=== PATIENT | female | born 1990 | race Caucasian/White ===

== ENCOUNTER 2016-12-21 13:01 | Emergency (ER) | payer BC, OTHER ==
[2016-12-21 13:22] VITALS: BMI 28.0
--- NOTE | 2016-12-21 13:36 | PDOC ---
History of Present Illness - General History Source: Patient, Old Records Exam Limitations: No Limitations <Bennie Delgado - Last Filed: 12/21/16 13:58> - General History Source: Patient Exam Limitations: No Limitations <Yael Irby - Last Filed: 12/21/16 16:59> - General Chief Complaint: Irregular Heart Beat Stated Complaint: Irregular Heart Beat Time Seen by Provider: 12/21/16 13:19 - History of Present Illness Initial Comments: 12/21/16 13:56 The patient is a 26 year old female with a past medical history of bipolar disorder and multiple sclerosis (diagnosed 12 years ago) who presents to the emergency department for further evaluation of bradycardia today. The patient states that she was at [facility] located at [address] [place] [address] in [place] to take a medication (Gilenya) prescribed by her neurologist, Dr. Juan. The patient states that after she took the medication her heart rate slowed to 46 bpm. The patient notes that this is the first time she has taken the medication and that she was informed bradycardia was a possible side effect. The patient denies any symptoms at this time. She denies lightheadedness , any other new medications, fevers, or syncope. (Bennie Delgado) 12/21/16 13:36 bradycardia after meds at [facility] , asxs. (Yael Irby) Past History <Bennie Delgado - Last Filed: 12/21/16 13:58> - Past Medical History Asthma: No Cancer: No Cardiac Disorders: No Diabetes: No Disorders: Yes (URINARY FREQ HX) HTN: No Psychiatric Problems: Yes (BIPOLAR) Suicide Attempt (Hx): No Seizures: No Thyroid Disease: No - Psycho/Social/Smoking Cessation Hx Anxiety: No Suicidal Ideation: No Smoking Status: No Smoking History: Never smoked Have you smoked in the past 12 months: No Number of Cigarettes Smoked Daily: 3 Information on smoking cessation initiated: No 'Breaking Loose' booklet given: 03/24/13 Hx Alcohol Use: No Drug/Substance Use Hx: No Substance Use Type: None Hx Substance Use Treatment: No <Yael Irby - Last Filed: 12/21/16 16:59> - Past Medical History Allergies/Adverse Reactions: Allergies Allergy/AdvReac Type Severity Reaction Status Date / Time Penicillins Allergy Mild Rash Verified 05/09/16 21:41 CITRUS Allergy Intermediate Swelling Uncoded 05/09/16 21:41 Home Medications: Ambulatory Orders Gabapentin 100 mg PO DAILY 12/21/16 Topiramate [Topamax] 100 mg PO BID 12/21/16 Cardiac Specific PMH - Complaint Specific PMHX Angina: No Pulmonary Embolus: No <Yael Irby - Last Filed: 12/21/16 16:59> Review of Systems - Review of Systems Able to Perform ROS?: Yes <Bennie Delgado - Last Filed: 12/21/16 13:58> <Yael Irby - Last Filed: 12/21/16 16:59> - Review of Systems Comments:: 12/21/16 13:56 CONSTITUTIONAL: Absent: fever, chills, diaphoresis, generalized weakness, malaise, loss of appetite HEENT: Absent: rhinorrhea, nasal congestion, throat pain, throat swelling, difficulty swallowing, mouth swelling, ear pain, eye pain, visual Changes CARDIOVASCULAR: Present: Bradycardia Absent: chest pain, syncope, palpitations, lightheadedness, peripheral edema RESPIRATORY: Absent: cough, shortness of breath, dyspnea with exertion, orthopnea, wheezing, stridor, hemoptysis GASTROINTESTINAL: Absent: abdominal pain, abdominal distension, nausea, vomiting, diarrhea, constipation, melena, hematochezia GENITOURINARY: Absent: dysuria, frequency, urgency, hesitancy, hematuria, flank pain, genital pain MUSCULOSKELETAL: Absent: myalgia, arthralgia, joint swelling SKIN: Absent: rash, itching, pallor HEMATOLOGIC/IMMUNOLOGIC: Absent: easy bleeding, easy bruising, lymphadenopathy, frequent infections ENDOCRINE: Absent: unexplained weight gain, unexplained weight loss, heat intolerance, cold intolerance NEUROLOGIC: Absent: headache, focal weakness or paresthesias, dizziness, unsteady gait, seizure, mental status changes, bladder or bowel incontinence PSYCHIATRIC: Absent: anxiety, depression, suicidal or homicidal ideation, hallucinations. ( Bennie Delgado) *Physical Exam <Bennie Delgado - Last Filed: 12/21/16 13:58> <Yael Irby - Last Filed: 12/21/16 16:59> - Vital Signs Last Vital Signs Temp Pulse Resp BP Pulse Ox 98.2 F 70 18 125/72 100 12/21/16 16:10 12/21/16 16:10 12/21/16 16:10 12/21/16 16:10 12/21/16 16:10 - Physical Exam Comments: 12/21/16 13:57 GENERAL: Well developed, well nourished. Awake and alert. In no acute distress. HEENT: Normocephalic, atraumatic. PERRLA, EOMI. No conjunctival pallor. Sclera are non- icteric. Moist mucous membranes. Oropharynx is clear. NECK: Supple. Full ROM. No JVD. Carotid pulses 2+ and symmetric, without bruits. No thyromegaly. No lymphadenopathy. CARDIOVASCULAR: Regular rate and rhythm. No murmurs, rubs, or gallops. Distal pulses are 2+ and symmetric. PULMONARY: No evidence of respiratory distress. Lungs clear to auscultation bilaterally. No wheezing, rales or rhonchi. ABDOMINAL: Soft. Non-tender. Non-distended. No rebound or guarding. No organomegaly. Normoactive bowel sounds. MUSCULOSKELETAL Normal range of motion at all joints. No bony deformities or tenderness. No CVA tenderness. EXTREMITIES: No cyanosis. No clubbing. No edema. No calf tenderness. 5/5 all extremities SKIN: Warm and dry. Normal capillary refill. No rashes. No jaundice. NEUROLOGICAL: Alert, awake, appropriate. Cranial nerves 2-12 intact. No deficits to light touch and temperature in face, upper extremities and lower extremities. No motor deficits in the in face, upper extremities and lower extremities. Normoreflexic in the upper and lower extremities. Normal speech. Toes are downgoing bilaterally. Gait is normal without ataxia. PSYCHIATRIC: Cooperative. Good eye contact. (Bennie Delgado) Heart Score/ECG Review <Bennie Delgado - Last Filed: 12/21/16 13:58> - ECG Intrepretation Rhythm: Regular Rhythm - [place]: Normal <Yael Irby - Last Filed: 12/21/16 16:59> - ECG Intrepretation Comment:: 12/21/16 16:29 sinus bradycardia 53 bpm. pr 144 (Yael Irby) - [place] Comment: 12/21/16 13:32 rate 54 bpm. sinus bradycardia. pr 138. (Yael Irby) ED Treatment Course - LABORATORY CBC & Chemistry Diagram: 12/21/16 13:38 12/21/16 13:38 <Yael Irby - Last Filed: 12/21/16 16:59> - ADDITIONAL ORDERS Additional order review: Laboratory Results 12/21/16 12/21/16 13:38 13:37 Sodium 139 Potassium 4.2 Chloride 104 Carbon Dioxide 25 D Anion Gap 10 BUN 7 D Creatinine 0.5 L Creat Clearance w eGFR > 60 Random Glucose 76 D Calcium 9.1 Total Bilirubin 1.4 H D AST 14 L ALT 18 D Alkaline Phosphatase 71 D Total Protein 7.0 Albumin 3.8 D TSH 0.81 Urine HCG, Qual Negative 12/21/16 13:38 RBC 4.42 MCV 86.5 MCHC 32.9 RDW 13.8 MPV 9.0 Progress Note <Bennie Delgado - Last Filed: 12/21/16 13:58> <Yael Irby - Last Filed: 12/21/16 16:59> - Progress Note Progress Note: pt with heart rate in the 70's on the monitor. ok for dc home. (Yael Irby) Medical Decision Making <Bennie Delgado - Last Filed: 12/21/16 13:58> <Yael Irby - Last Filed: 12/21/16 16:59> - Medical Decision Making 12/21/16 13:30 Dr. Juan was called. He stated that bradycardia was a normal reaction to taking the medication the first time and that the patient should continue to take the medication and should be monitored and given a nebulizer until bradycardia subsides. (Bennie Delgado) 12/21/16 13:33 26 yo F h/o bipolar, MS ( 10 yrs ) followed by nuerologist dr. Juan. here from clinic after receiving medication, Gilena. pt was givn pill for first time , and became bradycardic into the 40's no sxs of dizziness, no cp or sob. no loc. no h/o hypothyroid, no f/c no other complaints. ambulance was called transfered here. differential: medication side effect, hypothyroid, electrolyte abnormality. plan d/w nuerologist for need for further tele monitoring, med changes, labs tsh. reasss and monitor on tele. 12/21/16 16:13 pt heart rate in 70's. repeat ekg normal sinus rhythem. d/w pt nuerologist. dr. Whitfield , states only occurs with first dose of medication, pt is to resume medication tomorrow. follow up already scheduled. dc to home. (Yael Irby) *DC/Admit/Observation/Transfer <Bennie Delgado - Last Filed: 12/21/16 13:58> - Discharge Dispostion Admit: No <Yael Irby - Last Filed: 12/21/16 16:59> Diagnosis at time of Disposition: Bradycardia - Discharge Dispostion Disposition: HOME - Referrals Referrals: Keith Juan MD [Staff Physician] - Rony Tavarez MD [Primary Care Provider] - - Patient Instructions Printed Discharge Instructions: Bradycardia Additional Instructions: follow up with dr. juan as scheduled. return for weakness, fainting dizziness or any concerns. - Attestations Scribe Attestion: 12/21/16 13:57 Documentation prepared by Bennie Delgado, acting as director of medical review for Yael Irby MD. (Bennie Delgado)
[2016-12-21 14:05] LABS: MCH 28.5 pg (25.7-33.7); MCHC 32.9 g/dl (32.0-36.0); MEAN CELL VOLUME 86.5 fl (80-96); PLATELET COUNT 253 K/MM3 (134-434); RDW 13.8 % (11.6-15.6); WHITE BLOOD COUNT 7.3 K/mm3 (4.0-10.0)
[2016-12-21 14:31] LABS: ALBUMIN 3.8 g/dl (3.4-5.0); ANION GAP 10 (8-16); BILIRUBIN,TOTAL 1.4 mg/dL (0.2-1.0); CALCIUM 9.1 mg/dL (8.5-10.1); CO2 25 mmol/L (21-32); COCKROFT - GAULT 231.9735; CREATININE 0.5 mg/dL (0.55-1.02); GLUCOSE,RANDOM 76 mg/dL (74-106); SGOT/AST 14 U/L (15-37); SGPT/ALT 18 U/L (12-78)
[2016-12-21 14:32] LABS: ALK PHOS 71 U/L (45-117)
[2016-12-21 16:11] VITALS: BP 125/72; TEMP 98.2
[2016-12-21 16:13] LABS: THYROID STIMULATING HORMONE 0.81 uIU/ml (0.358-3.74)
[2016-12-21 17:05] VITALS: PULSE 64
--- NOTE | 2016-12-22 11:20 | EKG ---
Test Reason : Blood Pressure : / mmHG Vent. Rate : 054 BPM Atrial Rate : 054 BPM P-R Int : 138 ms QRS Dur : 082 ms QT Int : 440 ms P-R-T Axes : 018 072 049 degrees QTc Int : 417 ms SINUS BRADYCARDIA OTHERWISE NORMAL ECG WHEN COMPARED WITH ECG OF 12-MAY-2016 09:12, NO SIGNIFICANT CHANGE WAS FOUND Confirmed by LINCOLN WEBER MD ([id number]) on 12/22/2016 11:19:50 AM Referred By: Confirmed By:LINCOLN WEBER MD
--- NOTE | 2016-12-25 23:01 | EKG ---
Test Reason : Blood Pressure : / mmHG Vent. Rate : 053 BPM Atrial Rate : 053 BPM P-R Int : 144 ms QRS Dur : 084 ms QT Int : 442 ms P-R-T Axes : 010 057 036 degrees QTc Int : 414 ms SINUS BRADYCARDIA OTHERWISE NORMAL ECG WHEN COMPARED WITH ECG OF 21-DEC-2016 13:20, NO SIGNIFICANT CHANGE WAS FOUND Confirmed by RIVER REBOLLEDO MD ([id number]) on 12/25/2016 11:00:44 PM Referred By: Confirmed By:RIVER REBOLLEDO MD
== END 2016-12-21 17:10 | disposition home or self-care (01) ==
LOC: JER 13:01
DX: R00.1 Bradycardia, unspecified (principal); F31.9 Bipolar disorder, unspecified; G35 Multiple sclerosis
CPT/HCPCS: 36415; 80053; 84443; 84703; 85027; 93005; 93010; 99285-25

== ENCOUNTER 2018-06-07 10:42 | Emergency (ER) | payer BC ==
[2018-06-07 10:51] VITALS: BP 120/74; PULSE 65; TEMP 97.8; BMI 32.5
--- NOTE | 2018-06-07 11:45 | PDOC ---
History of Present Illness - General Chief Complaint: Rash Stated Complaint: RASH ON THE RIGHT HAND Time Seen by Provider: 06/07/18 10:47 History Source: Patient Exam Limitations: No Limitations - History of Present Illness Initial Comments: 06/07/18 16:40 27 yo F w/ a h/o eczema comes in c/o an itchy/burning rash to her hand for the past week. SHe has been scratching it a lot, has been using vaseline without much relief. NO other complaints today, no fever/chills, no NVD, no change in appetite, no decrease in PO intake, no decrease in urination, no change in body products, no change in detergent. She says that she does the dishes a lot and uses [employer]. 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 and does not have money to buy aquafor Past History - Past Medical History Allergies/Adverse Reactions: Allergies Allergy/AdvReac Type Severity Reaction Status Date / Time Penicillins Allergy Mild Rash Verified 06/07/18 10:45 CITRUS Allergy Intermediate Swelling Uncoded 06/07/18 10:45 Home Medications: Ambulatory Orders Fingolimod HCl [Gilenya] 0.5 mg PO ASDIR 06/07/18 Hydrocortisone 1% Cream [Hytone 1% Cream -] 1 applic TP BID #1 tube 06/07/18 Asthma: No Cancer: No Cardiac Disorders: No COPD: No Diabetes: No Disorders: Yes (URINARY FREQ HX) HTN: No Psychiatric Problems: Yes (BIPOLAR) Seizures: No Thyroid Disease: No Other medical history: M.S - Surgical History Abdominal Surgery: No - Suicide/Smoking/Psychosocial Hx Smoking Status: No Smoking History: Never smoked Have you smoked in the past 12 months: No Number of Cigarettes Smoked Daily: 3 Information on smoking cessation initiated: No 'Breaking Loose' booklet given: 03/24/13 Hx Alcohol Use: No Drug/Substance Use Hx: No Substance Use Type: None Hx Substance Use Treatment: No Review of Systems - Review of Systems Able to Perform ROS?: Yes Constitutional: No: Chills, Fever, Malaise, Night Sweats HEENTM: No: Eye Pain, Recent change in vision, Throat Pain Respiratory: No: Cough, Shortness of Breath Cardiac (ROS): No: Chest Pain, Palpitations, Chest Tightness ABD/GI: No: Diarrhea, Nausea, Vomiting, Abdominal cramping : No: Dysuria, Hematuria Musculoskeletal: No: Back Pain Integumentary: Yes: Rash Neurological: No: Headache, Numbness, Dizziness Psychiatric: No: Change in Appetite Endocrine: No: Unexplained Weight Loss *Physical Exam - Vital Signs Last Vital Signs Temp Pulse Resp BP Pulse Ox 97.8 F 65 18 120/74 100 06/07/18 10:45 06/07/18 10:45 06/07/18 10:45 06/07/18 10:45 06/07/18 10:45 - Physical Exam General Appearance: Yes: Nourished. No: Apparent Distress HEENT: positive: YAO, Normal ENT Inspection, Normal Voice. negative: Pale Conjunctivae, Scleral Icterus (R), Scleral Icterus (L) Neck: positive: Supple. negative: Decreased range of motion, Tender midline Respiratory/Chest: positive: Lungs Clear, Normal Breath Sounds. negative: Respiratory Distress, Accessory Muscle Use Cardiovascular: positive: Regular Rhythm, Regular Rate Musculoskeletal: positive: Normal Inspection. negative: Decreased Range of Motion Extremity: positive: Normal Capillary Refill, Normal Inspection, Normal Range of Motion. negative: Tender, Pedal Edema Integumentary: positive: Other ((+) R hand with a dry scaly excoriated rash diffusely, including fingers, with areas of thickened skin. No vesicles, no crusting, no areas of swelling/warmth/no signs of infection, no drainage, no pus ). negative: Jaundice Neurologic: positive: Fully Oriented, Alert, Normal Mood/Affect Medical Decision Making - Medical Decision Making 06/07/18 16:49 27 yo F w/ likely eczematous rash. WIll encourage hydration (PO and topical), will recommend gloves when washing the dishes. WIll recommend Aquafor, limit use of hot water and follow up with Assessment Consultant. Please follow up with Assessment Consultant Nancy Suarez, call for an appointment. Try to stop scratching and return for worsening/concerning symptoms. APply hydrocortisone only to intact skin. DO not apply hydrocortisone if you have breaks in the skin. *DC/Admit/Observation/Transfer Diagnosis at time of Disposition: Eczema - Discharge Dispostion Disposition: HOME Condition at time of disposition: Stable - Prescriptions Prescriptions: Hydrocortisone 1% Cream [Hytone 1% Cream -] 1 applic TP BID #1 tube - Referrals Referrals: Rony Tavarez MD [Primary Care Provider] - Nancy Suarez MD [Staff Physician] - - Patient Instructions - Post Discharge Activity
== END 2018-06-07 11:51 | disposition home or self-care (01) ==
LOC: JERFT 10:42 → JER 10:42 → JERFT 11:51
DX: L30.9 Dermatitis, unspecified (principal); F31.9 Bipolar disorder, unspecified
CPT/HCPCS: 99281-25

== ENCOUNTER 2019-10-27 16:12 | Emergency (ER) | payer BC, OTHER ==
[2019-10-27] MEDS ORDERED: ACETAMINOPHEN 500 MG TABLET (FP) PO ONE (16:20)
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
[2019-10-27 16:22] VITALS: BMI 65.1
[2019-10-27] MEDS ORDERED: ACETAMINOPHEN 500 MG TABLET (FP) ONE (16:58)
[2019-10-27] MEDS ORDERED: DIPHTH,PERTUSS(ACELL),TET 0.5 ML DISP.SYRIN IM ONE ×2 (17:18→18:52)
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
[2019-10-27] MEDS ORDERED: IBUPROFEN 600 MG TABLET (FP) PO ONE ×2 (21:13→21:26)
[2019-10-27 21:41] VITALS: BP 138/70; PULSE 82; TEMP 98.2
== END 2019-10-27 21:46 | disposition home or self-care (01) ==
LOC: JER 16:12
PROC: 3E0234Z Introduction of Serum, Toxoid and Vaccine into Muscle, Percutaneous Approach (ICD-10-PCS; principal; 2019-10-27)
DX: S02.2XXA Fracture of nasal bones, initial encounter for closed fracture (principal); S00.83XA Contusion of other part of head, initial encounter; S40.022A Contusion of left upper arm, initial encounter; S40.021A Contusion of right upper arm, initial encounter; S00.81XA Abrasion of other part of head, initial encounter; Y04.2XXA Assault by strike against or bumped into by another person, initial encounter; Y93.89 Activity, other specified; Y92.89 Other specified places as the place of occurrence of the external cause; Y99.8 Other external cause status; Y07.9 Unspecified perpetrator of maltreatment and neglect
CPT/HCPCS: 70450-TC; 70486-TC; 90715; 99284-25

== ENCOUNTER 2020-05-21 16:02 | Emergency (ER) | payer BC, OTHER ==
[2020-05-21 16:18] VITALS: BMI 38.4
--- OUTSIDE RECORDS SUMMARY | 2020-05-21 16:23 | XMS ---
:1990 Author Organization [facility] Care Team Providers Name Role Phone CHRISTIANO BOWERS MD Unavailable Unavailable [id number] Unavailable Unavailable PATRICIA BHAKTA Unavailable Unavailable MD MIKE Unavailable Unavailable JANIS Unavailable Unavailable Re-disclosure Warning The records that you are about to access may contain information from federally- assisted alcohol or drug abuse programs. If such information is present, then the following federally mandated warning applies: This information has been disclosed to you from records protected by federal confidentiality rules (42 CFR part 2). The federal rules prohibit you from making any further disclosure of this information unless further disclosure is expressly permitted by the written consent of the person to whom it pertains or as otherwise permitted by 42 CFR part 2. A general authorization for the release of medical or other information is NOT sufficient for this purpose. The Federal rules restrict any use of the information to criminally investigate or prosecute any alcohol or drug abuse patient.The records that you are about to access may contain highly sensitive health information, the redisclosure of which is protected by Article 27-F of the [facility] Public Health law. If you continue you may haveaccess to information: Regarding HIV / AIDS; Provided by facilities licensed or operated by the [facility] Office of Mental Health; or Provided by the [facility] Office for People With Developmental Disabilities. If such information is present, then the following [facility] mandated warning applies: This information has been disclosed to you from confidential records which are protected by state law. State law prohibits you from making any further disclosure of this information without the specific written consent of the person to whom it pertains, or as otherwise permitted by law. Any unauthorized further disclosure in violation of state law may result in a fine or assisted sentence or both. A general authorization for the release of medical or other information is NOT sufficient authorization for further disclosure. Encounters Encounter Providers Location Date Indications Data Source(s ) Unlisted 09/30/2019 [facility] (Ment al evaluation and 05:17:00 PM Health As sociation management service EST [facility]) Outpatient Attender: CHRISTIANO HERRERA 09/22/2019 [facility] YATESAdmitter: 02:18:00 PM Hospit al CHACE BHAKTA EST Attender: 09/22/2019 [facility] [id number] 02:18:00 PM Hospit al .[id number] [facility]_[id number] Outpatient Attender: RUCHI 08/11/2019 [facility] lambert SOTONANNGOAdmitter 03:15:00 PM Hospit al : MARCELO OLIVER - JANIS 08/11/2019 07:50:00 PM EST Patient discharged. Attender: 08/11/2019 [place] [id number] 03:15:00 PM [facility]_6766 Outpatient Attender: CHRISTIANO BOWERS [facility] 10/11/2014 [facility] 11:14:00 AM EST - Hospita l 06/03/2019 12:44:00 PM EDT Patient discharged. Attender: [id number] 2014 11:14:00 [facility]_6766 AM [facility] Hospital Attender: [id number] 2013 11:32:00 [facility]_6766 AM [facility] Hospital Attender: [id number] 2013 09:16:00 [facility]_6766 AM [facility] Hospital Attender: [id number] 2013 08:08:00 [facility]_6766 PM [facility] Hospital Attender: [id number] 2013 06:47:00 [facility]66 PM EDT Hospital Attender: [id number] 2013 01:09:00 [facility] PM EDT Hospital Attender: [id number] 2013 04:01:00 [facility] PM EDT Hospital Attender: [id number] 2012 01:27:00 [facility] PM EDT Hospital Attender: [id number] 2012 07:24:00 [facility] PM EDT Hospital Medications Medication Brand Start Product Dose Route Administrative Pharmacy [facility] Indications Reaction Description Data Name Date Form Instructions Instructions Source(s) oxcarbazepi OXcarb ORAL complet OXcarb azepin [facility] 150 MG azepin 2019 Table ed e - 150 MG [facility] Oral Tablet e - 12:00: t ORAL [facility] Hospital 150 MG 00 AM ORAL EDT Tablet oxcarbazepi OXcarb ORAL complet OXcarb azepin [facility] 150 MG azepin 2019 Table ed e - 150 MG [facility] Oral Tablet e - 12:00: t ORAL [facility] Hospital 150 MG 00 AM ORAL EDT Tablet Diphenhydra Banoph ORAL complet Banoph [facility] 2019 Capsu ed 25 MG ORAL [facility] Hydrochlori 25 MG 12:00: le Capsule [facility] de 25 MG ORAL 00 AM Oral Capsul EDT Capsule e [Banophen] gabapentin Gabape ORAL complet Gabapen tin - [facility] 100 MG Oral ntin 2019 Capsu ed 100 MG ORA L [facility] Capsule 100 MG 12:00: le Capsule Hospi jun ORAL 00 AM Capsul EDT e Insurance Providers Payer name Policy type Policy ID Covered Covered constitution party's Policy P balta / Coverage constitution party ID relationship to [employer] ormation type weiss MEDICAID [id number] SP [id number] BC PPO [id number] [place] [id number] SELF PAY 0 Self 0 MEDICAID OP [id number] Self [id number] BEACON [id number] Self [id number] (EMPIRE PLAN V/O) SELF PAY 0 Self 0 MEDICAID OP [id number] Self [id number] Problems, Conditions, and Diagnoses Code Display Name Description Problem Type Effective Data Sour ce(s) Dates Borderline Borderline Complaint 08/26/2009 [facility] personality personality 12:00:00 PM Hospital disorder disorder EST (disorder) [id number] Alcohol abuse Alcohol abuse Complaint 08/26/2009 [facility] (disorder) 12:00:00 PM Hospital EST [id number] Cannabis abuse Cannabis abuse Complaint 08/26/2009 [facility] (disorder) 12:00:00 PM Hospital EST [id number] Borderline Borderline Complaint 08/26/2009 [facility] personality personality 12:00:00 PM Hospital disorder disorder EST (disorder) [id number] Alcohol abuse Alcohol abuse Complaint 08/26/2009 [facility] (disorder) 12:00:00 PM Hospital EST [id number] Cannabis abuse Cannabis abuse Complaint 08/26/2009 [facility] (disorder) 12:00:00 PM Hospital EST 305.00 NONDEPENDENT ALCOHOL Diagnosis 10/11/2014 [facility] ALCOHOL ABUSE ABUSE-UNSPEC 12:00:00 AM Hospital UNSPECIFIED EST DRINKING BEHAVIOR 304.30 CANNABIS CANNABIS Diagnosis 10/11/2014 [facility] DEPENDENCE DEPEND-UNSPEC 12:00:00 AM Hospital UNSPECIFIED USE EST 301.83 BORDERLINE BORDERLINE Diagnosis 10/11/2014 [facility] PERSONALITY PERSONALITY 12:00:00 AM Hospital DISORDER EST 296.80 BIPOLAR DISORDER MANIC-DEPRESSIVE Diagnosis 10/11/2014 [facility] UNSPECIFIED NOS 12:00:00 AM Hospital EST Results ID Date Data Source [id number] 12/22/2019 12:00:00 AM EDT [facility] Name Value Range Interpretation Code Description Data [facility] rce(s) Supporting Document(s ) 2019-nCoV [facility] RNA XXX YAMIL+probe- Imp This lab was ordered by [facility] and reported by [employer] Procedure
--- NOTE | 2020-05-21 17:06 | PDOC ---
History of Present Illness - General Chief Complaint: Pain Stated Complaint: RS ARM PAIN- RADIATING Time Seen by Provider: 05/21/20 16:35 History Source: Patient Exam Limitations: No Limitations - History of Present Illness Initial Comments: 05/21/20 16:54 HISTORY OF PRESENT ILLNESS: 29-year-old woman with past medical history of multiple sclerosis presents emergency department for evaluation of right-sided weakness and a burning sensation in her right wrist and forearm. Patient reports her symptoms started after taking Medrol Dosepak for her wrist pain prescribed by an orthopedic surgeon. Patient states she is right-hand dominant and is now having weakness in her right hand where she has inability to open up previously open containers. Patient reports she is in the process of changing her neurologist to an MS specialist for continued evaluation but is previously seen Dr. Moore for neurology. PMD: Rony Tavarez No recent travel or sick contacts. PAST MEDICAL HISTORY: See HPI SURGICAL HISTORY: Denies ALLERGIES: Penicillin REVIEW OF SYSTEMS General/Constitutional: Denies fever or chills. Denies weakness, weight change. HEENT: Denies change in vision. Denies ear pain or discharge. Denies sore throat. Cardiovascular: Denies chest pain or shortness of breath. Respiratory: Denies cough, wheezing, or hemoptysis. Gastrointestinal: Denies nausea, vomiting, diarrhea or constipation. Denies rectal bleeding. Genitourinary: Denies dysuria, frequency, or change in urination. Musculoskeletal: Denies joint or muscle swelling or pain. Denies neck or back pain. Skin and breasts: Denies rash or easy bruising. Neurologic: See HPI Psychiatric: Denies depression or anxiety. Endocrine: Denies increased thirst. Denies abnormal weight change. Hematologic/Lymphatic: Denies anemia, easy bleeding, or history of blood clots. Allergic/Immunologic: Denies hives or skin allergy. Denies latex allergy. PHYSICAL EXAM General Appearance: Well-appearing, appropriately dressed. No apparent distress, no intoxication. HEENT: EOMI, PERRLA, normal ENT inspection, normal voice, TMs normal, pharynx normal. No conjunctival pallor. No photophobia, scleral icterus. Respiratory/Chest: Lungs CTAB. No shortness of breath, chest tenderness, respiratory distress, accessory muscle use. No crackles, rales, rhonchi, stridor, wheezing, dullness Cardiovascular: RRR. S1, S2. No JVD, murmur, bradycardia, tachycardia. Musculoskeletal/Extremities: Normal inspection. FROM of all extremities, normal capillary refill. Pelvis Stable. No CVA tenderness. No tenderness to extremiti es, pedal edema, swelling, erythema or deformity. 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 Fully oriented, alert. Appropriate mood/affect. 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 No appreciable EOM palsy, facial droop or sensory deficit. Gait is steady. Normal finger-nose testing. DTR's WNL. No drift present bilaterally. 05/21/20 17:24 05/24/20 11:13 Past History - Medical History Allergies/Adverse Reactions: Allergies Allergy/AdvReac Type Severity Reaction Status Date / Time Penicillins Allergy Mild Rash Verified 05/21/20 16:12 CITRUS Allergy Intermediate Swelling Uncoded 05/21/20 16:12 Home Medications: Ambulatory Orders Methylprednisolone [Medrol Dose Nicholas] 4 mg PO ASDIR #21 tablet 05/21/20 Oxcarbazepine [Oxtellar Xr] 150 mg PO HS 05/21/20 Asthma: No Cancer: No Cardiac Disorders: No COPD: No Diabetes: No Disorders: Yes (URINARY FREQ HX) HTN: No Psychiatric Problems: Yes (BIPOLAR) Seizures: No Thyroid Disease: No - Surgical History Abdominal Surgery: No - Reproductive History Is Patient Now?: No - Psycho-Social/Smoking History Smoking Status: No Smoking History: Never smoked Have you smoked in the past 12 months: No Number of Cigarettes Smoked Daily: 3 'Breaking Loose' booklet given: 03/24/13 - Substance Abuse Hx (Audit-C & DAST Scrn) How often the patient has a drink containing alcohol: Never Score: In Men: 4 or > Positive; In Women: 3 or > Positive: 0 Screen Result (Pos requires Nsg. Audit-10AR): Negative In the last yr the pt used illegal drug/Rx for NonMed reason: No Score: Yes response is considered Positive: 0 Screen Result (Positive result requires Nsg. 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 Neurologic consult Reassess 05/21/20 18:01 Patient has been discussed with Dr. Moore who states decreased hammer mill operator strength without drift is not a focal examination and he states that she can follow-up as an outpatient in his office. He recommends the patient continue taking the medication that was prescribed for her and to follow-up with her MS specialist as he does not believe this is an MS flare at this time. 05/21/20 19:19 Laboratory Tests 05/21/20 05/21/20 05/21/20 17:30 17:30 17:30 WBC 10.2 H RBC 4.30 Hgb 12.1 Hct 36.2 MCV 84.1 MCH 28.2 MCHC 33.6 RDW 15.2 D Plt Count 309 MPV 9.6 Absolute Neuts (auto) 7.1 Neutrophils % 70.0 Lymphocytes % 19.6 D Monocytes % 6.5 Eosinophils % 2.4 Basophils % 1.5 Nucleated RBC % 0 PT with INR 11.20 INR 0.95 Sodium 140 Potassium 4.3 Chloride 107 Carbon Dioxide 31 Anion Gap 3 L BUN 14.6 Creatinine 0.7 Est GFR (CKD-EPI)AfAm 135.70 Est GFR (CKD-EPI)NonAf 117.08 Random Glucose 103 Calcium 8.7 Total Bilirubin 0.3 AST 19 ALT 27 Alkaline Phosphatase 100 Total Protein 6.9 Albumin 3.3 L Serum , Qual Urine Color Urine Appearance Urine pH Ur Specific Frederick Urine Protein Urine Glucose (UA) Urine Ketones Urine Blood Urine Nitrite Urine Bilirubin Urine Urobilinogen Ur Leukocyte Esterase 05/21/20 05/21/20 17:30 18:21 WBC RBC Hgb Hct MCV MCH MCHC RDW Plt Count MPV Absolute Neuts (auto) Neutrophils % Lymphocytes % Monocytes % Eosinophils % Basophils % Nucleated RBC % PT with INR INR Sodium Potassium Chloride Carbon Dioxide Anion Gap BUN Creatinine Est GFR (CKD-EPI)AfAm Est GFR (CKD-EPI)NonAf Random Glucose Calcium Total Bilirubin AST ALT Alkaline Phosphatase Total Protein Albumin Serum , Qual Negative Urine Color Yellow Urine Appearance Clear Urine pH 6.0 Ur Specific Frederick 1.027 Urine Protein Negative Urine Glucose (UA) Negative Urine Ketones Negative Urine Blood Negative Urine Nitrite Negative Urine Bilirubin Negative Urine Urobilinogen 0.2 Ur Leukocyte Esterase Negative Mild leukocytosis likely due to recent steroid use. Otherwise testing is unremarkable. Given neurology consultation will discharge the patient home to follow-up as an outpatient. As patient is continuing to have pain I will prescribe Medrol Dosepak for continued treatment of her pain. I discussed the physical exam findings, ancillary test results and final diagnoses with the patient. I answered all of the patient's questions. The patient was satisfied with the care received and felt comfortable with the d ischarge plan and treatment plan. The patient will call their primary care physician within 24 hours to arrange follow-up and will return to the Emergency Department with any new, persistent or worsening symptoms. Portions of this note have been documented using voice recognition software. As a result, errors may occur in the print production manager process. Effort has been made to correct all grammatical and print production manager error, but some may have been missed which may produce sporadic inaccurate print production manager or nonsensical phrases. Discharge - Discharge Information Problems reviewed: Yes Clinical Impression/Diagnosis: Paresthesias Condition: Stable Disposition: HOME - Admission No - Additional Discharge Information Prescriptions: Methylprednisolone [Medrol Dose Nicholas] 4 mg PO ASDIR #21 tablet - Follow up/Referral Referrals: Keith Moore MD [Staff Physician] - - Patient Discharge Instructions Additional Instructions: Your case has been discussed with Dr. Moore. He recommends you follow-up as an outpatient for continued evaluation of your symptoms. Make sure to follow-up with your orthopedic doctor for continued evaluation of your wrist pain. Take Medrol Dosepak as prescribed. Continue all previously prescribed medications. Return to the emergency department for any new or worsening symptoms. Thank you very much for choosing us to provide your emergent healthcare needs. - Post Discharge Activity Work/Back to School Note: Back to Work
[2020-05-21 17:57] LABS: BASO % 1.5 % (0-2.0); EOS % 2.4 % (0-4.5); HEMATOCRIT 36.2 % (32.4-45.2); HEMOGLOBIN 12.1 GM/dL (10.7-15.3); LYMPH % 19.6 % (8-40); MCH 28.2 pg (25.7-33.7); MCHC 33.6 g/dl (32.0-36.0); MEAN CELL VOLUME 84.1 fl (80-96); MEAN PLT VOLUME 9.6 fl (7.5-11.1); MONO % 6.5 % (3.8-10.2); PLATELET COUNT 309 K/MM3 (134-434); RDW 15.2 % (11.6-15.6); WHITE BLOOD COUNT 10.2 K/mm3 (4.0-10.0)
[2020-05-21 18:10] LABS: INR 0.95 (0.83-1.09); PROTHROMBIN TIME (PATIENT) 11.2 SEC (9.7-13.0)
[2020-05-21 18:26] LABS: ALBUMIN 3.3 g/dl (3.4-5.0); BILIRUBIN,TOTAL 0.3 mg/dL (0.2-1); BLOOD UREA NITROGEN 14.6 mg/dL (7-18); CALCIUM 8.7 mg/dL (8.5-10.1); CREATININE 0.7 mg/dL (0.55-1.3); POTASSIUM 4.3 mmol/L (3.5-5.1); TOT PROT 6.9 g/dl (6.4-8.2)
[2020-05-21 19:16] LABS: URINE APPEARANCE CLEAR; URINE BILIRUBIN NEGATIVE (NEGATIVE); URINE COLOR YELLOW; URINE GLUCOSE (UA) NEGATIVE (NEGATIVE); URINE KETONE NEGATIVE (NEGATIVE); URINE LEUK ESTERASE NEGATIVE (NEGATIVE); URINE NITRITE NEGATIVE (NEGATIVE); URINE PROTEIN NEGATIVE (NEGATIVE); URINE UROBILINOGEN 0.2 mg/dL (0.2-1.0)
[2020-05-21 19:29] VITALS: BP 126/77; PULSE 82; TEMP 98.3
== END 2020-05-21 19:27 | disposition home or self-care (01) ==
LOC: JER 16:02
DX: R20.2 Paresthesia of skin (principal)
CPT/HCPCS: 36415; 80053; 81003; 84703; 85025; 85610; 87086; 99283-25

== ENCOUNTER 2021-05-12 11:21 | Emergency (ER) | payer BC, OTHER ==
[2021-05-12 11:29] VITALS: BP 123/84; PULSE 94; TEMP 98; BMI 36.9
[2021-05-12] MEDS ORDERED: KETOROLAC TROMETHAMINE 30 MG/1 ML VIAL IM ONE (12:32)
[2021-05-12] MEDS ORDERED: METHOCARBAMOL 500 MG TABLET PO ONE (12:32)
[2021-05-12] MEDS ORDERED: METHOCARBAMOL 500 MG TABLET ONE (12:36)
[2021-05-12] MEDS ORDERED: KETOROLAC TROMETHAMINE 30 MG/1 ML VIAL ONE (12:37)
== END 2021-05-12 13:00 | disposition home or self-care (01) ==
LOC: JERFT 11:21 → JER 11:21 → JERFT 13:00
PROC: 3E0233Z Introduction of Anti-inflammatory into Muscle, Percutaneous Approach (ICD-10-PCS; principal; 2021-05-12)
DX: M54.5 Low back pain (principal)
CPT/HCPCS: 99284-25

== ENCOUNTER 2021-07-02 15:45 | Emergency (ER) | payer BC, OTHER ==
[2021-07-02 15:51] VITALS: BMI 36.9
[2021-07-02] MEDS ORDERED: SODIUM CHLORIDE 0.9% 500 ML INFUS.BAG IV ONE (18:19)
[2021-07-02] MEDS ORDERED: KETOROLAC TROMETHAMINE 30 MG/1 ML VIAL IVPUSH ONE (18:19)
[2021-07-02 18:42] LABS: BASO % 1.9 % (0-2.0); EOS % 3.2 % (0-4.5); HEMATOCRIT 37.6 % (32.4-45.2); LYMPH % 24.5 % (8-40); MCH 28.1 pg (25.7-33.7); MCHC 34.7 g/dl (32.0-36.0); MEAN CELL VOLUME 81.1 fl (80-96); MEAN PLT VOLUME 8.9 fl (7.5-11.1); MONO % 5.3 % (3.8-10.2); NEUT % 65.1 % (42.8-82.8); PLATELET COUNT 333 10^3/uL (134-434); RBC 4.64 M/mm3 (3.60-5.2); RDW 14.3 % (11.6-15.6); WHITE BLOOD COUNT 9.3 K/mm3 (4.0-10.0)
[2021-07-02] MEDS ORDERED: KETOROLAC TROMETHAMINE 30 MG/1 ML VIAL ONE (18:44)
[2021-07-02 18:46] LABS: EPI CELLS 30 /uL (0-25.1); HYALINE CASTS 1 /uL (0-3.1); URINE APPEARANCE CLEAR; URINE BACTERIA 1114 /uL (0-1359); URINE BILIRUBIN NEGATIVE (NEGATIVE); URINE COLOR YELLOW; URINE GLUCOSE (UA) NEGATIVE (NEGATIVE); URINE KETONE NEGATIVE (NEGATIVE); URINE LEUK ESTERASE TRACE (NEGATIVE); URINE NITRITE NEGATIVE (NEGATIVE); URINE PROTEIN NEGATIVE (NEGATIVE); URINE RBC 15 /uL (0-23.9); URINE UROBILINOGEN 0.2 mg/dL (0.2-1.0); URINE WBC 45 /uL (0-25.8)
[2021-07-02 18:51] LABS: INR 1.1 (0.83-1.09); PROTHROMBIN TIME (PATIENT) 12.9 SEC (9.7-13.0)
[2021-07-02 19:04] LABS: CALCIUM 9.6 mg/dL (8.5-10.1)
[2021-07-02 19:05] LABS: ALBUMIN 3.9 g/dl (3.4-5.0); BLOOD UREA NITROGEN 11.9 mg/dL (7-18)
[2021-07-02 19:08] LABS: CREATININE 0.6 mg/dL (0.55-1.3)
[2021-07-02 19:10] LABS: BILIRUBIN,TOTAL 0.3 mg/dL (0.2-1); TOT PROT 8.1 g/dl (6.4-8.2)
[2021-07-02 22:24] VITALS: BP 132/87; PULSE 74; TEMP 98.3
== END 2021-07-02 22:22 | disposition home or self-care (01) ==
LOC: JER 15:45
PROC: 3E0333Z Introduction of Anti-inflammatory into Peripheral Vein, Percutaneous Approach (ICD-10-PCS; principal; 2021-07-02)
DX: M79.604 Pain in right leg (principal)
CPT/HCPCS: 36415; 80053; 81003; 84703; 85025; 85610; 87086; 93971-TC; 99284-25

== ENCOUNTER 2022-05-06 10:29 | Emergency (ER) | payer BC, OTHER ==
[2022-05-06 11:15] VITALS: BP 124/68; PULSE 88; RESP 18; TEMP 98.4; BMI 35.4
[2022-05-06] MEDS ORDERED: KETOROLAC TROMETHAMINE 30 MG/1 ML VIAL IM ONE (13:03)
[2022-05-06] MEDS ORDERED: KETOROLAC TROMETHAMINE 30 MG/1 ML VIAL ONE (13:28)
[2022-05-06] MEDS ORDERED: METHOCARBAMOL 500 MG TABLET PO ONE (13:34)
[2022-05-06] MEDS ORDERED: METHOCARBAMOL 500 MG TABLET ONE (13:35)
[2022-05-06 13:52] LABS: URINE APPEARANCE CLEAR; URINE BILIRUBIN NEGATIVE (NEGATIVE); URINE COLOR YELLOW; URINE GLUCOSE (UA) NEGATIVE (NEGATIVE); URINE KETONE NEGATIVE (NEGATIVE); URINE LEUK ESTERASE NEGATIVE (NEGATIVE); URINE NITRITE NEGATIVE (NEGATIVE); URINE PROTEIN NEGATIVE (NEGATIVE); URINE UROBILINOGEN 0.2 mg/dL (0.2-1.0)
[2022-05-06 14:01] LABS: HCG,QUALITATIVE URINE Negative
[2022-05-06] MEDS ORDERED: GABAPENTIN 100 MG CAPSULE PO ONE (14:47)
[2022-05-06] MEDS ORDERED: GABAPENTIN 100 MG CAPSULE ONE (14:53)
[2022-05-06] MEDS ORDERED: DEXAMETHASONE SOD PHOSPHATE 10 MG/1 ML VIAL PO ONE (14:55)
[2022-05-06] MEDS ORDERED: DEXAMETHASONE SOD PHOSPHATE 10 MG/1 ML VIAL ONE (14:59)
[2022-05-06] MEDS ORDERED: LIDOCAINE 5% TOPICAL PATCH TP ONE (16:18)
[2022-05-06] MEDS ORDERED: LIDOCAINE 5% TOPICAL PATCH ONE (16:20)
[2022-05-06] MEDS ORDERED: LIDOCAINE PATCH REMOVAL MC SCH (22:00)
== END 2022-05-06 18:40 | disposition home or self-care (01) ==
LOC: JER 10:29 → JERFT 10:29
PROC: 3E0233Z Introduction of Anti-inflammatory into Muscle, Percutaneous Approach (ICD-10-PCS; principal; 2022-05-06)
DX: M54.50 Low back pain, unspecified (principal)
CPT/HCPCS: 81003; 84703; 87086; 99283-25; J1100

== ENCOUNTER 2022-05-31 23:09 | Emergency (ER) | payer BC, OTHER ==
[2022-05-31 23:17] VITALS: BP 132/84; PULSE 93; RESP 18; TEMP 98; BMI 36.9
[2022-06-01] MEDS ORDERED: BUPIVACAINE HCL/PF 0.5% (5 MG/ML) 30 ML VIAL IJ ONE (00:11)
== END 2022-06-01 01:26 | disposition home or self-care (01) ==
LOC: JER 23:09
DX: R68.84 Jaw pain (principal)
CPT/HCPCS: 99283-25

== ENCOUNTER 2024-11-25 12:24 | Inpatient (IN) | payer BC, OTHER ==
[2024-11-25 12:30] VITALS: BMI 30.1
[2024-11-25] MEDS: methylPREDNISolone NA SUCC 1000 MG/8 ML VIAL IVPB ONE (14:23)
[2024-11-25] MEDS ORDERED: ACETAMINOPHEN INJECTION 100 ML ONE (14:27)
[2024-11-25] MEDS ORDERED: ONDANSETRON 4 MG/2 ML VIAL ONE (14:27)
[2024-11-25] MEDS ORDERED: FAMOTIDINE 20 MG/50 ML IVPB 20 MG/50 ML MG IVPB ONE (14:27)
[2024-11-25] MEDS ORDERED: LIDOCAINE 5% TOPICAL PATCH ONE (14:27)
[2024-11-25 14:41] LABS: EPI CELLS >36 /uL (0-25.1); HCG,QUALITATIVE URINE Negative; HYALINE CASTS 2 /uL (0-3.1); PH,URINE 5.5 (5.0-8.0); URINE APPEARANCE CLOUDY; URINE BACTERIA 929 /uL (0-1359); URINE BILIRUBIN NEGATIVE (NEGATIVE); URINE COLOR YELLOW; URINE GLUCOSE (UA) NEGATIVE (NEGATIVE); URINE KETONE 1+ (NEGATIVE); URINE LEUK ESTERASE NEGATIVE (NEGATIVE); URINE NITRITE NEGATIVE (NEGATIVE); URINE PROTEIN TRACE (NEGATIVE); URINE RBC 33 /uL (0-23.9); URINE WBC 26 /uL (0-25.8)
[2024-11-25] MEDS: LIDOCAINE 5% TOPICAL PATCH TP ONE (14:54)
[2024-11-25] MEDS: ACETAMINOPHEN 1000 MG/100 ML BAG IVPB ONE (14:54)
[2024-11-25] MEDS: FAMOTIDINE 20 MG/50 ML IVPB 20 MG/50 ML MG IVPB ONE ×2 (14:55→19:06)
[2024-11-25] MEDS: ONDANSETRON 4 MG/2 ML VIAL IVPB ONE (14:55)
[2024-11-25 14:57] LABS: ABSOLUTE IMMATURE GRANULOCYTES 0.02 x10^3/uL (0.0-0.031); BASOPHILS # 0.13 x10^3/uL (0.01-0.08); EOSINOPHIL % 0.3 % (0.7-5.8); EOSINOPHILS # 0.03 x10^3/uL (0.04-0.36); HEMATOCRIT 46.6 % (34.1-44.9); HEMOGLOBIN 14.8 g/dL (11.2-15.7); MCHC 31.8 g/dl (32.2-35.5); MEAN CELL VOLUME 86.6 fl (79.4-94.8); MEAN PLT VOLUME 11.2 fl (9.4-12.3); MONOCYTE # 0.36 x10^3/uL (0.24-0.86); MONOCYTE % 3.2 % (4.7-12.5); PLATELET COUNT 309 x10^3/uL (182-369); RDW 12.6 % (12.1-16.8)
[2024-11-25 15:05] LABS: INR 1.25 (0.83-1.09); PROTHROMBIN TIME (PATIENT) 13.6 SEC (9.7-13.0)
[2024-11-25 15:16] LABS: POTASSIUM 3.7 mmol/L (3.5-5.1)
[2024-11-25 15:21] LABS: ALBUMIN 4.2 g/dl (3.4-5.0); CALCIUM 9.5 mg/dL (8.5-10.1)
[2024-11-25 15:22] LABS: BLOOD UREA NITROGEN 10.9 mg/dL (7-18)
[2024-11-25 15:25] LABS: BILIRUBIN,TOTAL 1.4 mg/dL (0.2-1); CREATININE 0.8 mg/dL (0.55-1.3)
[2024-11-25 15:26] LABS: TOT PROT 8.3 g/dl (6.4-8.2)
[2024-11-25 17:11] LABS: MAGNESIUM 2.3 mg/dL (1.8-2.4)
[2024-11-25 17:15] LABS: PHOSPHOROUS 4.1 mg/dL (2.5-4.9)
[2024-11-25] MEDS: ONDANSETRON 4 MG/2 ML VIAL IVPUSH PRN (18:54)
[2024-11-25] MEDS: SODIUM CHLORIDE 0.9%/KCL 20 MEQ/1,000 ML INFUS.BAG IV SCH (18:54)
[2024-11-25] MEDS: LIDOCAINE PATCH REMOVAL MC SCH (21:07)
[2024-11-26] MEDS: FAMOTIDINE 20 MG/50 ML IVPB 20 MG/50 ML MG IVPB SCH (01:39)
[2024-11-26] MEDS ORDERED: methylPREDNISolone NA SUCC 125 MG/2 ML VIAL IVPUSH SCH (08:00)
[2024-11-26 08:28] LABS: HEMOGLOBIN 13.1 g/dL (11.2-15.7); MEAN CELL VOLUME 86.9 fl (79.4-94.8); MEAN PLT VOLUME 11.2 fl (9.4-12.3); PLATELET COUNT 248 x10^3/uL (182-369); RDW 12.6 % (12.1-16.8)
[2024-11-26 08:41] LABS: POTASSIUM 4.4 mmol/L (3.5-5.1)
[2024-11-26 08:54] LABS: CALCIUM 9.4 mg/dL (8.5-10.1); MAGNESIUM 2.1 mg/dL (1.8-2.4)
[2024-11-26 08:57] LABS: CREATININE 0.7 mg/dL (0.55-1.3); PHOSPHOROUS 3.7 mg/dL (2.5-4.9)
[2024-11-26] MEDS: methylPREDNISolone NA SUCC 125 MG/2 ML VIAL IVPUSH SCH (08:59)
[2024-11-26] MEDS ORDERED: SODIUM CHLORIDE IVPB SCH (09:00)
[2024-11-26] MEDS ORDERED: METHYLPREDNISOLONE NA SUCC IVPB SCH (09:00)
[2024-11-26] MEDS: SODIUM CHLORIDE IVPB SCH (09:22)
[2024-11-26] MEDS: METHYLPREDNISOLONE NA SUCC IVPB SCH (09:22)
[2024-11-26] MEDS: ENOXAPARIN NA (PORCINE) 40 MG/0.4 ML DISP.SYRIN SQ SCH (09:23)
[2024-11-26] MEDS: PANTOPRAZOLE 40 MG TABLET PO SCH (09:23)
[2024-11-26] MEDS: ACETAMINOPHEN 325 MG TABLET (FP) PO PRN (12:44)
[2024-11-26] MEDS: SODIUM CHLORIDE 1,000 ML IV SCH (19:30)
[2024-11-27 08:28] LABS: HEMATOCRIT 41.5 % (34.1-44.9); HEMOGLOBIN 13.6 g/dL (11.2-15.7); MCHC 32.8 g/dl (32.2-35.5); MEAN CELL VOLUME 85.2 fl (79.4-94.8); MEAN PLT VOLUME 11.3 fl (9.4-12.3); PLATELET COUNT 304 x10^3/uL (182-369); RDW 12.5 % (12.1-16.8)
[2024-11-27 08:45] LABS: POTASSIUM 3.8 mmol/L (3.5-5.1)
[2024-11-27 08:54] LABS: ALBUMIN 3.8 g/dl (3.4-5.0); CALCIUM 9.7 mg/dL (8.5-10.1)
[2024-11-27 08:55] LABS: BLOOD UREA NITROGEN 9.2 mg/dL (7-18); MAGNESIUM 2.2 mg/dL (1.8-2.4)
[2024-11-27 08:56] LABS: TOT PROT 7.4 g/dl (6.4-8.2)
[2024-11-27 08:58] LABS: CREATININE 0.6 mg/dL (0.55-1.3); PHOSPHOROUS 3.1 mg/dL (2.5-4.9)
[2024-11-27] MEDS ORDERED: ACETAMINOPHEN 325 MG TABLET (FP) PO PRN ×2 (14:00→14:13)
[2024-11-27] MEDS: ACETAMINOPHEN/CAFFEINE/BUTALBITAL 1 TAB PO ONE ×2 (14:34→21:41)
[2024-11-27] MEDS: MELATONIN 5 MG TABLETS PO ONE (21:22)
[2024-11-28] MEDS: IBUPROFEN 400 MG TABLET (FP) PO ONE (06:39)
[2024-11-28 08:18] LABS: HEMATOCRIT 40.4 % (34.1-44.9); HEMOGLOBIN 13.3 g/dL (11.2-15.7); MCHC 32.9 g/dl (32.2-35.5); MEAN CELL VOLUME 85.8 fl (79.4-94.8); MEAN PLT VOLUME 11.3 fl (9.4-12.3); PLATELET COUNT 330 x10^3/uL (182-369); RDW 12.8 % (12.1-16.8)
[2024-11-28 09:04] LABS: POTASSIUM 3.8 mmol/L (3.5-5.1)
[2024-11-28 09:14] LABS: ALBUMIN 3.6 g/dl (3.4-5.0); BLOOD UREA NITROGEN 11.4 mg/dL (7-18); CALCIUM 9.5 mg/dL (8.5-10.1); MAGNESIUM 2.3 mg/dL (1.8-2.4)
[2024-11-28 09:18] LABS: CREATININE 0.7 mg/dL (0.55-1.3); PHOSPHOROUS 2.5 mg/dL (2.5-4.9)
[2024-11-28 09:21] LABS: BILIRUBIN,TOTAL 0.9 mg/dL (0.2-1)
[2024-11-28] MEDS: ACETAMINOPHEN 500 MG TABLET (FP) PO PRN (09:39)
[2024-11-28] MEDS ORDERED: traZODone HCL 50 MG TABLET (FP) PO PRN (17:53)
[2024-11-28] MEDS: MELATONIN 5 MG TABLETS PO ONE (21:12)
[2024-11-28] MEDS ORDERED: traZODone HCL 50 MG TABLET (FP) PO SCH (22:00)
[2024-11-29] MEDS: ESCITALOPRAM OXALATE 10 MG TABLET PO SCH (09:20)
[2024-11-29 10:24] VITALS: BP 121/68; PULSE 74; RESP 18; TEMP 97.9
== END 2024-11-29 14:25 | disposition home or self-care (01) | DRG 43 ==
LOC: JER 12:24 → JERBED 14:20 → J6S 16:24 → OBSVTOIN 11-26 10:27
PROVIDERS: ADMIT Student in an Organized Health Care Education/Training Program; ATTEND Internal Medicine
DX: G35 Multiple sclerosis (principal); H53.9 Unspecified visual disturbance; R11.10 Vomiting, unspecified; R42 Dizziness and giddiness; F41.8 Other specified anxiety disorders
CPT/HCPCS: 36415; 70553-TC; 80048; 80053; 81003; 82962; 83690; 83735; 84100; 84443; 84703; 85025; 85027; 85610; 85651; 86140; 87086; 93005; 93010; 97116-GP; 97162-GP; 99285-25; A9576; G0378; J0131